=== PATIENT | male | born 2000 | race Caucasian/White ===

== ENCOUNTER 2021-12-14 19:06 | Emergency (ER) | payer OTHER, SELFPAY ==
[2021-12-14 19:13] VITALS: BP 124/86; PULSE 89; TEMP 37.7; O2SAT 96; BMI 25.1
--- NOTE | 2021-12-14 19:42 | ED_ITS ---
HPI - General Adult General Time Seen by Provider: 19:42 Date Seen: 12/14/21 Chief complaint: Headache/Migraine Stated complaint: MIGRAINE WITH FEVER Time Seen by Provider: 12/14/21 19:24 Source: patient, family (Mom is present) and RN notes reviewed Mode of arrival: ambulatory Limitations: no limitations History of Present Illness HPI narrative: This is a very pleasant 21-year-old male is coming in with ongoing headache and fevers. Since Wednesday of this last week, today is Wednesday, he has been having intermittent fevers and headache. He has used ibuprofen as well as Excedrin. These certainly do help take the headache away. He denies any neck symptoms such as neck stiffness any difficulty turning his neck. He denies any associated myalgias or arthralgias with this. 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 He has not had any tick bites or any significant bug bites that he is aware of. There is no skin rash. There is no visual changes. There is no sore throat, no nasal congestion. He has had no respiratory symptoms such as shortness of breath, difficulty breathing, cough. He denies any chest symptomatology or chest pain. Wednesday night the day after symptoms started he did have some nausea and vomiting but that was the only day. There has been no diarrhea. He has no abdominal pain, no urinary symptoms. He denies any travel, no known ill contacts. Denies any recent cold sores. MD complaint: Fever and headache Related Data Home Medications Medication Instructions Recorded Confirmed No Known Home Medications 12/14/21 12/14/21 Allergies Allergy/AdvReac Type Severity Reaction Status Date / Time Penicillins Allergy Unknown Verified 12/14/21 19:17 Review of Systems Status of ROS: Reports: 10 or more systems reviewed and unremarkable except as noted in History and below PFSH PFS Social History Smoking Status: Current every day smoker Do you use any of these nicotine containing products: E-Cigarettes Second hand tobacco smoke exposure: No How often do you have a drink containing alcohol: never How often do you have six or more drinks on one occasion: Never AUDIT-C Alcohol total score: 0 Non-prescribed substance use: denies use Exam Const: Vital Signs, click to edit/add: Vital Signs - 24 hr 12/14/21 19:13 Temperature 99.9 F H Pulse Rate [Left P ulse Oximeter] 89 Blood Pressure [Ri ght Upper Arm] 124/86 Pulse Oximetry 96 Oxygen Delivery Me thod Room Air Documenting provider has reviewed patient's vital signs: yes Common normals: no apparent distress, average body habitus, oriented x3, no limitations, healthy appearing, alert and well nourished General appearance: cooperative, comfortable and well kempt HENMT: Common normals: normocephalic, head/scalp atraumatic, hearing grossly normal bilaterally, external ears normal, EAC's normal, TM's normal bilaterally, external nose normal, nasal mucous membranes and turbinates normal, moist oral mucous membranes, oropharynx normal, dentition normal and gingiva normal Head and scalp: normocephalic and atraumatic Nose: external nose normal and nasal mucous membranes and turbinates normal External ear: external ears normal External auditory canal: EAC's normal Tympanic membrane: TM's normal bilaterally Eye: Common normals: PERRL, EOMs intact bilaterally, conjunctivae normal and no scleral icterus Conjunctiva: conjunctiva(e) normal Pupil: PERRL Neck & C-Spine: Common normals: full ROM, no lymphadenopathy, supple, no meningeal signs, no JVD, thyroid normal and no carotid bruits Thyroid: thyroid normal Lymph: Lymphatic: no lymphadenopathy noted Resp: Common normals: normal respiratory effort, no retractions, no use of accessory muscles and clear to auscultation bilaterally Auscultation: clear to auscultation bilaterally Cardio: Common normals: no JVD, regular rate, regular rhythm, S1 normal heart sound, S2 normal heart sound, no gallops, no clicks, no murmurs and no rub Rate: regular rate Rhythm: regular rhythm Heart sounds: S1 normal and S2 n ormal GI: Common normals: Normal to inspection, nondistended, normoactive bowel sounds present, soft to palpation, non-tender, no hepatosplenomegaly, no masses and no bruits Palpation: soft and no hepatosplenomegaly Extremity: Common normals: normal to inspection, full ROM, normal capillary refill, no joint enlargement, no clubbing, cyanosis or edema, no calf tenderness and no pedal edema Neuro: Common normals: oriented x3, CN's II-XII intact bilaterally, moves all extremities, no focal motor deficits, no sensory deficits noted and gait normal Sensorium/orientation: alert Meningeal signs: no meningeal signs Psych: Appearance: well kempt Course Course Hospital Course: Patient will have an IV established, we will obtain blood work and proceed with a L of normal saline and 15 mg IV Toradol. Headache is likely stemming from a concomitant infectious Reevaluation(s) Reevaluation #1: Patient is feeling better with IV fluids and Toradol. Have reviewed with he and his mom that his labs minus the pending sed rate are all completely normal. His comprehensive metabolic panel, his CBC, his lactate, his pro calcitonin, his CRP are not showing any evidence of any alterations suggesting a bacterial infection. I think he is suffering from some viral infection in hopefully within the next few days will start to improve. They are aware that the influenza and COVID testing were negative. We did discuss neuro imaging and at this time I would not do so with 5 days illness and his clinical presentation tonight. He has absolutely no focal deficits and completely normal labs. There are in agreement with plan at this time. Time: 21:09 Vital Signs Vital signs: Initial Vital Signs Temperature 99.9 F H 12/14/21 19:13 Temperature Source Temporal Artery Scan 12/14/21 19:13 Pulse Rate 89 12/14/21 19:13 Blood Pressure 124/86 12/14/21 19:13 Blood Pressure Mean 98 12/14/21 19:13 Blood Pressure Position Sitting 12/14/21 19:13 Pulse Oximetry 96 12/14/21 19:13 Oxygen Delivery Method 12/14/21 19:13 Vital Signs Temperature 99.9 F H 12/14/21 19:13 Pulse Rate 89 12/14/21 19:13 Blood Pressure 124/86 12/14/21 19:13 Pulse Oximetry 96 12/14/21 19:13 Oxygen Delivery Method 12/14/21 19:13 Temperature 99.9 F H 12/14/21 19:13 Pulse Rate 89 12/14/21 19:13 Blood Pressure 124/86 12/14/21 19:13 Pulse Oximetry 96 12/14/21 19:13 Oxygen Delivery Method 12/14/21 19:13 Medical Decision Making Lab Data Lab results reviewed: Yes I reviewed the patient's lab results Labs: Lab Results 08/07/22 08/07/22 08/07/22 Range/Units 19:20 20:00 20:00 WBC 6.79 (4.50-11.00) K/uL RBC 5.26 (4.30-5.90) m/uL Hgb 15.5 (13.5-17.5) gm/dL Hct 45.1 (37.0-53.0) % MCV 86 (80-100) fL MCH 30 (26-34) pg MCHC 34 (32-36) gm/dL RDW Coeff of Juliette 11.8 (11.5-15.5) % Plt Count 258 (140-440) K/uL Neut % (Auto) 66.0 (42.0-72.0) % Lymph % (Auto) 24.6 (20-44) % [place] % (Auto) 6.8 (0.0-11.0) % Eos % (Auto) 1.6 (0.0-7.0) % Baso % (Auto) 0.3 (0.0-3.0) % Neut # (Auto) 4.50 (1.7-7.0) K/uL Lymph # (Auto) 1.70 (0.90-2.90) K/uL [place] # (Auto) 0.50 (0.00-0.90) K/UL Eos # (Auto) 0.10 (0.00-0.50) K/uL Baso # (Auto) 0.00 (0.00-0.30) K/uL Abs Immat Gran (auto) 0.00 (0.00-0.30) K/uL Imm/Tot Granulo (auto) 0.7 % ESR (2-15) mm/hr Sodium 138 (135-149) mmol/L Potassium 4.1 (3.6-5.1) mmol/L Chloride 104 (96-114) mmol/L Carbon Dioxide 26 (20-32) mmol/L BUN 11 (5-24) mg/dL Creatinine 0.9 (0.5-1.5) mg/dL Estimated Creat Clear 139.44 Estimated GFR 125 ml/min Glucose 114 (60-115) mg/dL Lactate (0.5-1.9) mmol/L Calcium 9.1 (8.4-10.6) mg/dL Total Bilirubin 0.7 (0.1-1.5) mg/dL AST 27 (12-35) U/L ALT 34 (4-50) U/L Alkaline Phosphatase 94 (40-150) U/L C-Reactive Protein (0.5-1.0) mg/dL Total Protein 7.4 (6.0-8.3) g/dL Albumin 4.6 (3.3-5.0) g/dL Procalcitonin 0.03 (<0.50) ng/mL SARS-CoV-2 (PCR) Negative SARS-CoV-2 (Negative) Influenza Type A (PCR) Negative PCR FLU A (Negative) Influenza Type B (PCR) Negative PCR FLU B (Negative) 12/14/21 12/14/21 12/14/21 Range/Units 20:00 20:00 20:00 WBC (4.50-11.00) K/uL RBC (4.30-5.90) m/uL Hgb (13.5-17.5) gm/dL Hct (37.0-53.0) % MCV (80-100) fL MCH (26-34) pg MCHC (32-36) gm/dL RDW Coeff of Juliette (11.5-15.5) % Plt Count (140-440) K/uL Neut % (Auto) (42.0-72.0) % Lymph % (Auto) (20-44) % [place] % (Auto) (0.0-11.0) % Eos % (Auto) (0.0-7.0) % Baso % (Auto) (0.0-3.0) % Neut # (Auto) (1.7-7.0) K/uL Lymph # (Auto) (0.90-2.90) K/uL [place] # (Auto) (0.00-0.90) K/UL Eos # (Auto) (0.00-0.50) K/uL Baso # (Auto) (0.00-0.30) K/uL Abs Immat Gran (auto) (0.00-0.30) K/uL Imm/Tot Granulo (auto) % ESR <2 L (2-15) mm/hr Sodium (135-149) mmol/L Potassium (3.6-5.1) mmol/L Chloride (96-114) mmol/L Carbon Dioxide (20-32) mmol/L BUN (5-24) mg/dL Creatinine (0.5-1.5) mg/dL Estimated Creat Clear Estimated GFR ml/min Glucose (60-115) mg/dL Lactate 0.8 (0.5-1.9) mmol/L Calcium (8.4-10.6) mg/dL Total Bilirubin (0.1-1.5) mg/dL AST (12-35) U/L ALT (4-50) U/L Alkaline Phosphatase (40-150) U/L C-Reactive Protein < 0.5 L (0.5-1.0) mg/dL Total Protein (6.0-8.3) g/dL Albumin (3.3-5.0) g/dL Procalcitonin (<0.50) ng/mL SARS-CoV-2 (PCR) (Negative) Influenza Type A (PCR) (Negative) Influenza Type B (PCR) (Negative) Critical Care Time Critical Care Time Critical Care Time: No Discharge Plan Discharge Clinical Impression: Fever, Acute viral syndrome, Headache Condition: Stable Instructions: Fever in Adults (ED), Acute Headache (ED), Viral Syndrome (ED) Additional Instructions: Rest, stay hydrated, can use [id number] medicines such is Tylenol/ibuprofen/Excedrin as needed for headache and fever control, follow bottle directions for dosing. If you are not improving in the next couple of days, please recheck in clinic. She do start to develop a specific symptom with your current illness such as the sore throat or a cough, please be re-evaluated. If at any point you feel you are worsening, also do need to be re-evaluated. Activity Level: Activity as Tolerated Discharge Diet: Regular Prescriptions: No Action No Known Home Medications Follow Up/Referrals: Cachorro Lane MD [Primary Care Provider] - Stand Alone Forms: [employer] Info Instructions
[2021-12-14 20:08] LABS: PCR FLU A Negative PCR FLU A (Negative); PCR FLU B Negative PCR FLU B (Negative)
[2021-12-14 20:10] LABS: Lactate* 0.8 mmol/L (0.5-1.9)
[2021-12-14] MEDS: KETOROLAC 15 MG/ML inj IVP (20:10)
[2021-12-14] MEDS: 0.9 % SODIUM CHLORIDE 1000 ml 1,000 ML IV (20:10)
[2021-12-14 20:13] LABS: SARS PCR* Negative SARS-CoV-2 (Negative)
[2021-12-14 20:16] LABS: Hematocrit 45.1 % (37.0-53.0); Hemoglobin* 15.5 gm/dL (13.5-17.5); Red Blood Count 5.26 m/uL (4.30-5.90); White Blood Count* 6.79 K/uL (4.50-11.00)
[2021-12-14 20:17] LABS: Basophils Percent Auto 0.3 % (0.0-3.0); Eosinophils Percent Auto 1.6 % (0.0-7.0); Immature Granulocytes Pct Auto 0.7 %; Lymphocytes Percent Auto 24.6 % (20-44); Mean Corpuscular HGB Conc 34 gm/dL (32-36); Mean Corpuscular Hemoglobin 30 pg (26-34); Mean Corpuscular Volume 86 fL (80-100); Monocytes Percent Auto 6.8 % (0.0-11.0); Platelet Count* 258 K/uL (140-440); RDW Coefficient of Variation % 11.8 % (11.5-15.5); Slide Review Reflex No
[2021-12-14 20:28] LABS: Albumin* 4.6 g/dL (3.3-5.0); Chloride* 104 mmol/L (96-114); Potassium* 4.1 mmol/L (3.6-5.1); Sodium* 138 mmol/L (135-149)
[2021-12-14 20:31] LABS: Alanine Aminotransferase* 34 U/L (4-50); Alkaline Phosphatase* 94 U/L (40-150); Aspartate Amino Transferase* 27 U/L (12-35); Bilirubin Total* 0.7 mg/dL (0.1-1.5); Blood Urea Nitrogen* 11 mg/dL (5-24); Calcium* 9.1 mg/dL (8.4-10.6); Carbon Dioxide* 26 mmol/L (20-32); Creatinine* 0.9 mg/dL (0.5-1.5); Est. Creatinine Clearance* 139.44; Estimated Glomerular Filt Rate 125 ml/min; Glucose* 114 mg/dL (60-115); Total Protein* 7.4 g/dL (6.0-8.3)
[2021-12-14 20:35] LABS: C Reactive Protein* < 0.5 mg/dL (0.5-1.0)
[2021-12-14 20:48] LABS: Procalcitonin* 0.03 ng/mL (<0.50)
[2021-12-14 20:52] LABS: Erythrocyte SedimentationRate* <2 mm/hr (2-15)
[2021-12-14 21:23] VITALS: BP 119/74; PULSE 84; RESP 18; TEMP 36.4; O2SAT 96
[2021-12-14 21:24] VITALS: TEMP 36.4
[2021-12-14 21:25] VITALS: BP 119/74; PULSE 84; RESP 18; TEMP 36.4
== END 2021-12-14 21:25 | disposition home or self-care (01) ==
PROVIDERS: Emergency Provider Family Medicine; PCP Family Medicine
DX: R51.9 Headache, unspecified (principal); R50.9 Fever, unspecified
CPT/HCPCS: 36415; 80053; 83605; 84145; 85025; 85651; 86140; 87502; 87635; 96374; 99284; J1885; J7030